=== PATIENT | female | born 1980 | race African-American/Black ===

== ENCOUNTER → 2018-03-07 | Outpatient (CLI) | payer OTHER ==
--- NOTE | ~2018-03-07 | 24HR ---
[address] [address] 24 HR ELECTROCARDIOGRAM REPORT Name: BEV SWIFT Room #: [facility]#: [id number] Admission: 03/07/18 Attend Phys: Patrick Gutierrez Discharge: Date of : 84 Date of Service: 03/07/18 1504 Report #: [id number] THIS REPORT FOR: //name// [facility] Test Date: 2018-03-07 Test Time: 15:04:00 Pat Name: BEV SWIFT Department: Room: Gender: Supervisor Benzene Refining: : 1980 Requested By: Patrick Bell Order Number: [id number] Jose STOLL: Interpretive Statements [email or web address] [email or web address] 150 1504 Epiphany EpiphMD bhupendra /EPI
== END ==
LOC: CV 14:32
DX: R00.2 Palpitations (principal)